=== PATIENT | male | born 1990 | race Hispanic/Latino ===

== ENCOUNTER 2023-07-19 07:28 | Emergency (ER) | payer OTHER ==
[~2023-07-19] VITALS: Ht 175.3 cm; Wt 95.3 kg
[2023-07-19 07:50] VITALS: BP 139/90; PULSE 110; RESP 18; O2SAT 98
== END 2023-07-19 09:31 ==
LOC: EDH 07:28
DX: Z02.89 Encounter for other administrative examinations (principal)